=== PATIENT | male | born 1945 | race Caucasian/White ===

== ENCOUNTER 2020-10-31 09:46 | Emergency (ER) | payer MEDICARE, BC ==
--- NOTE | 2020-10-31 10:31 | EDM.PDOC ---
ED HPI GENERAL MEDICAL PROBLEM - General Chief Complaint: Lower Extremity Injury/Pain Stated Complaint: JAMMED 2ND TOE ON R FOOT Time Seen by Provider: 10/31/20 10:00 Source of Information: Reports: Patient History Limitations: Reports: No Limitations - History of Present Illness INITIAL COMMENTS - FREE TEXT/NARRATIVE: Pt. presents to ER with complaints of injury to the 4th digit of the R foot. Pt. reported that he stubbed his toe yesterday and developed a blood blister on the digit overnight. He states that he is on coumadin. He wanted to have the blood blister incised and drained so that he could wear his shoes, but states that the blister opened on the way to the hospital. Pt. denies any edith injury. He denies any crepitus or deformity and states that he thinks the injury is superficial. Pt. denies any injury proximal to the toes. Denies any foot pain or injury to the ankle/lower leg. Onset: Today Onset Date: 10/31/20 Location: Reports: Lower Extremity, Right Right Toe-Ring Pain Score (Numeric/FACES): 1 - Related Data Allergies Allergy/AdvReac Type Severity Reaction Status Date / Time amiodarone Allergy Cannot Verified 10/31/20 10:08 Remember atorvastatin Allergy Cannot Verified 10/31/20 10:07 Remember ciprofloxacin [From Cipro] Allergy Cannot Verified 10/31/20 10:07 Remember ciprofloxacin HCl Allergy Cannot Verified 10/31/20 10:07 [From Cipro] Remember clarithromycin Allergy Cannot Verified 10/31/20 10:07 Remember Sulfa (Sulfonamide Allergy Cannot Verified 10/31/20 10:07 Antibiotics) Remember sulfamethoxazole Allergy Rash Verified 10/31/20 10:07 [From Bactrim] tamsulosin Allergy Cannot Verified 10/31/20 10:08 Remember tramadol Allergy Cannot Verified 10/31/20 10:08 Remember trimethoprim [From Bactrim] Allergy Rash Verified 10/31/20 10:07 Home Meds: Home Meds Azelastine [Astelin Nasal Soln] 2 sprays NASBOTH PRN 02/03/14 [History] Fluticasone Propionate [Flonase] 2 spray NASBOTH DAILY 02/03/14 [History] Folic Acid 1 tab PO DAILY 02/03/14 [History] Meloxicam [Mobic] 1 tab PO DAILY 02/03/14 [History] Omeprazole [Prilosec] 1 tab PO DAILY 02/03/14 [History] Tolterodine Tartrate [Detrol LA] 1 cap PO DAILY 02/03/14 [History] allopurinoL [Zyloprim] 1.5 tab PO DAILY 02/03/14 [History] Ascorbic Acid [Vitamin C] 500 mg PO DAILY 10/31/20 [History] Cholecalciferol (Vitamin D3) [Vitamin D3] 1,000 unit PO DAILY 10/31/20 [History] Lisinopril/Hydrochlorothiazide [Lisinopril-Hctz 20-12.5 mg Tab] 1 each PO DAILY 10/31/20 [History] Magnesium Chloride [Mag Delay] 64 mg PO DAILY 10/31/20 [History] Montelukast [Singulair] 10 mg PO DAILY 10/31/20 [History] Multivit,Calc,Mins/Iron/Folic [Therapeutic-M Tablet] 1 each PO DAILY 10/31/20 [History] Simvastatin [Zocor] 20 mg PO BEDTIME 10/31/20 [History] Warfarin [Coumadin] 5 mg PO DAILY 10/31/20 [History] Past Medical History Cardiovascular History: Reports: Afib, Hypertension Social & Family History - Tobacco Use Tobacco Use Status *Q: Unknown Ever Used Tobacco Review of Systems - Review of Systems Review Of Systems: Comprehensive ROS is negative, except as noted in HPI. ED EXAM, GENERAL - Physical Exam Exam: See Below Exam Limited By: No Limitations General Appearance: Alert, WD/WN, No Apparent Distress Extremities: Other (abrasion/evidence of a recently opened blood blister noted to 4th digit of the L foot.) Course - Vital Signs Last Recorded V/S: Last Vital Signs Temp 36.5 C 10/31/20 09:52 Pulse 94 10/31/20 09:52 Resp 16 10/31/20 09:52 BP 155/71 H 10/31/20 09:52 Pulse Ox 99 10/31/20 09:52 Departure - Departure Time of Disposition: 10:20 Disposition: Home, Self-Care 01 Clinical Impression: Blood blister, Contusion of toe of left foot - Discharge Information Instructions: Contusion, [id number] Forms: ED Department Discharge Additional Instructions: Keep toes open to air as much as possible to encourage healing. Ice toes for 10 min every hour. Follow-up in clinic or return to ER if you notice any redness, swelling, or discharge from the area. Sepsis Event Note (ED) - Evaluation Sepsis Screening Result: No Definite Risk - Focused Exam Vital Signs: Vital Signs Temp Pulse Resp BP Pulse Ox 10/31/20 09:52 36.5 C 94 16 155/71 H 99 - Problem List Review Problem List Initiated/Reviewed/Updated: Yes - Assessment/Plan Plan: Keep toes open to air as much as possible to encourage healing. Ice toes for 10 min every hour. Follow-up in clinic or return to ER if you notice any redness, swelling, or discharge from the area.
== END 2020-10-31 10:15 | disposition home or self-care (01) ==
LOC: VM.ED 09:46
DX: S90.122A Contusion of left lesser toe(s) without damage to nail, initial encounter (principal); S90.425A Blister (nonthermal), left lesser toe(s), initial encounter; I10 Essential (primary) hypertension; I48.91 Unspecified atrial fibrillation; Z88.5 Allergy status to narcotic agent; Z88.2 Allergy status to sulfonamides; Z79.01 Long term (current) use of anticoagulants; Z88.1 Allergy status to other antibiotic agents; Z88.8 Allergy status to other drugs, medicaments and biological substances; Z79.899 Other long term (current) drug therapy; W22.8XXA Striking against or struck by other objects, initial encounter
CPT/HCPCS: 99283

== ENCOUNTER 2024-08-04 08:48 | Day surgery (SDC) | payer MEDICARE, BC ==
[~2024-08-04 08:48] MED LIST: Brimonidine 0.2% Ophth Soln 5 ML Bottle ONE; Cyclopentolate 1% Opth Soln 2 ML Bottle EYELF SCH; Dexamethasone/Neomycin/Polymyxin B Ophth Oint 3.5 GM Tube ONE; Lidocaine 1% 2 ML ONE; Moxifloxacin 0.5% Ophth Soln 3 ML Bottle EYELF SCH; Phenylephrine 2.5% Ophth Soln 2 ML Bot EYELF SCH; Phenyleprhine/Ketorolac 4 ML Vial ONE; Povidone-Iodine 5% Sterile Ophth Soln 30 ML Bottle ONE; Proparacaine 0.5% Ophth Soln 15 ML Bottle ONE; Tropicamide 1% Ophth Soln 3 ML Bottle EYELF SCH; acetaZOLAMIDE 500 MG Cap.ER PO ONE
[2024-08-04] MEDS: Tropicamide 1% Ophth Soln 3 ML Bottle EYERT SCH (09:10)
[2024-08-04] MEDS: Phenylephrine 2.5% Ophth Soln 2 ML Bot EYERT SCH (09:10)
[2024-08-04] MEDS: Cyclopentolate 1% Opth Soln 2 ML Bottle EYERT SCH (09:10)
[2024-08-04] MEDS ORDERED: Midazolam 1 MG/ML 2 ML SDV ONE (09:13)
[2024-08-04] MEDS ORDERED: fentaNYL 100 MCG/2 ML SDV ONE (09:13)
[2024-08-04] MEDS: Moxifloxacin 0.5% Ophth Soln 3 ML Bottle EYERT ONE ×2 (09:30→10:37)
[2024-08-04] MEDS ORDERED: ceFAZolin 500 MG Vial ONE (09:45)
[2024-08-04] MEDS: Balanced Salt Solution Ophth Irrig 500 ML Bottle IOCULAR ONE (10:37)
[2024-08-04] MEDS: Lidocaine 1% PF 2 ML SDV INFILT ONE (10:37)
[2024-08-04] MEDS: Phenyleprhine/Ketorolac 4 ML Vial IO ONE (10:37)
[2024-08-04] MEDS: Brimonidine 0.2% Ophth Soln 5 ML Bottle EYERT ONE (10:38)
[2024-08-04] MEDS: Dexamethasone/Neomycin/Polymyxin B Ophth Oint 3.5 GM Tube EYERT ONE (10:38)
[2024-08-04] MEDS: Chondroitin Sulfate/Hyaluronate Sodium Ophth Inj 0.5 ML Syringe IOCULAR ONE (10:38)
[2024-08-04] MEDS: Povidone-Iodine 5% Sterile Ophth Soln 30 ML Bottle EYERT ONE (10:38)
[2024-08-04] MEDS: Tetracaine HCl/PF 0.5% 4 ML Bottle EYERT ONE (10:39)
[2024-08-04] MEDS: acetaZOLAMIDE 500 MG Cap.ER PO ONE (11:06)
== END 2024-08-04 11:24 | disposition home or self-care (01) ==
LOC: VM.SDS 08:48
PROVIDERS: ATTEND Ophthalmology
DX: H26.8 Other specified cataract (principal); I10 Essential (primary) hypertension; E78.5 Hyperlipidemia, unspecified; K21.9 Gastro-esophageal reflux disease without esophagitis; M80.08XA Age-related osteoporosis with current pathological fracture, vertebra(e), initial encounter for fracture; Z87.891 Personal history of nicotine dependence; Z88.2 Allergy status to sulfonamides; Z88.1 Allergy status to other antibiotic agents; Z88.8 Allergy status to other drugs, medicaments and biological substances
CPT/HCPCS: 00142; 99100; A9270-GY; J0690; J1097; J2250; J3010; J3490

== ENCOUNTER 2025-02-15 13:50 | Emergency (ER) | payer MEDICARE, BC ==
[2025-02-15] MEDS: Diphtheria,Pertussis(Acell),Tetanus Vaccine 0.5 ML Syringe IM ONE (14:45)
== END 2025-02-15 15:07 | disposition home or self-care (01) ==
LOC: VM.ED 13:50
DX: S68.621A Partial traumatic transphalangeal amputation of left index finger, initial encounter (principal); I10 Essential (primary) hypertension; I48.91 Unspecified atrial fibrillation; K21.9 Gastro-esophageal reflux disease without esophagitis; Z79.899 Other long term (current) drug therapy; Z79.01 Long term (current) use of anticoagulants; Z88.5 Allergy status to narcotic agent; Z88.8 Allergy status to other drugs, medicaments and biological substances; Z88.2 Allergy status to sulfonamides; Z88.1 Allergy status to other antibiotic agents; Z23 Encounter for immunization; W29.3XXA Contact with powered garden and outdoor hand tools and machinery, initial encounter
CPT/HCPCS: 12042; 73140-F1; 90471; 90715; 99283-25; J0665; J2003

== ENCOUNTER 2025-05-02 18:52 | Emergency (ER) | payer MEDICARE, BC | END 2025-05-02 19:23 | disposition home or self-care (01) | LOC: VM.ED 18:52 | DX: S91.209A Unspecified open wound of unspecified toe(s) with damage to nail, initial encounter (principal); X58.XXXA Exposure to other specified factors, initial encounter | CPT/HCPCS: 99283 ==